=== PATIENT | female | born 1990 | race Caucasian/White ===

== ENCOUNTER 2021-06-17 20:21 | Emergency (ER) | payer SELFPAY ==
[2021-06-17] MEDS ORDERED: Morphine 4 MG/ML Syringe ONE ×2 (20:25→20:53)
[2021-06-17] MEDS ORDERED: Ondansetron 4 MG/2 ML SDV ONE (20:27)
[2021-06-17] MEDS ORDERED: Ondansetron 4 MG/2 ML SDV IVPUSH ONE (20:28)
--- NOTE | 2021-06-17 20:32 | EDM.PDOC ---
ED HPI GENERAL MEDICAL PROBLEM - General Chief Complaint: Trauma Stated Complaint: FELL OFF SEMI TRUCK Time Seen by Provider: 06/17/21 20:27 Source of Information: Reports: Patient History Limitations: Reports: No Limitations - History of Present Illness INITIAL COMMENTS - FREE TEXT/NARRATIVE: Patient is a 30-year-old female calls with trauma location of the fall off the top of a semitruck. Patient arrived patient patient airway was intact she had bilateral breath sounds and good pulses throughout. She complained of pain to her lower back her left hip and left flank side. She believes he may have hit her head when she fell but did not have any LOC she is ANO x3 moving all extremities he has good range of motion. Patient tenderness mostly to the lumbar sacral area of her spine. She has no C-spine tenderness. Patient fast was essentially negative but patient is turned to the side would not lay flat in follow C-spine precautions. Lower Back Pain Score (Numeric/FACES): 10 - Related Data Allergies Allergy/AdvReac Type Severity Reaction Status Date / Time lidocaine Allergy Itching Verified 06/17/21 22:22 Review of Systems - Review of Systems Review Of Systems: See Below Constitutional: Reports: No Symptoms Eyes: Reports: No Symptoms Ears: Reports: No Symptoms Nose: Reports: No Symptoms Mouth/Throat: Reports: No Symptoms Respiratory: Reports: No Symptoms Cardiovascular: Reports: No Symptoms GI/Abdominal: Reports: No Symptoms Genitourinary: Reports: No Symptoms Musculoskeletal: Reports: Back Pain Skin: Reports: No Symptoms Neurological: Reports: No Symptoms Psychiatric: Reports: No Symptoms ED EXAM, GENERAL - Physical Exam Exam: See Below Exam Limited By: No Limitations General Appearance: Alert, WD/WN Eye Exam: Bilateral Eye: EOMI, PERRL Head: Atraumatic, Normocephalic Neck: Normal Inspection, Supple, Non-Tender Respiratory/Chest: No Respiratory Distress, Lungs Clear, Normal Breath Sounds Cardiovascular: Normal Peripheral Pulses, Regular Rate, Rhythm GI/Abdominal: Normal Bowel Sounds, Soft, Tender (Left sided pain mostly flank) Back Exam: Normal Inspection, Vertebral Tenderness (Lumbar sacral tenderness) Extremities: Normal Inspection, Normal Range of Motion Neurological: Alert, Oriented, Normal Cognition. No: Normal Gait (Able to ambulate with a limp) Course - Vital Signs Last Recorded V/S: Last Vital Signs Temp 98.2 F 06/17/21 20:21 Pulse 109 H 10/04/21 20:21 Resp 22 H 06/17/21 20:21 BP 151/83 H 06/17/21 20:21 Pulse Ox 98 06/17/21 20:21 - Orders/Labs/Meds Orders: Active Orders 24 hr Category Date Time Status HYDROmorphone [Dilaudid] Med 06/18/21 00:42 Once 1 mg IVPUSH ONETIME ONE Labs: Laboratory Tests 06/17/21 06/17/21 06/17/21 Range/Units 22:00 22:04 22:50 WBC 5.47 (4.0-11.0) K/uL RBC 3.35 L (4.30-5.90) M/uL Hgb 10.1 L (12.0-16.0) g/dL Hct 30.9 L (36.0-46.0) % MCV 92.2 (80.0-98.0) fL MCH 30.1 (27.0-32.0) pg MCHC 32.7 (31.0-37.0) g/dL RDW Std Deviation 56.8 (28.0-62.0) fl RDW Coeff of Danisha 17 H (11.0-15.0) % Plt Count 288 (150-400) K/uL MPV 9.90 (7.40-12.00) fL Neut % (Auto) 64.2 (48.0-80.0) % Lymph % (Auto) 21.8 (16.0-40.0) % [place] % (Auto) 9.3 (0.0-15.0) % Eos % (Auto) 4.2 (0.0-7.0) % Baso % (Auto) 0.5 (0.0-1.5) % Neut # (Auto) 3.5 (1.4-5.7) K/uL Lymph # (Auto) 1.2 (0.6-2.4) K/uL [place] # (Auto) 0.5 (0.0-0.8) K/uL Eos # (Auto) 0.2 (0.0-0.7) K/uL Baso # (Auto) 0.0 (0.0-0.1) K/uL Nucleated RBC % 0.0 /100WBC Nucleated RBCs # 0 K/uL INR 1.23 APTT 24.8 (18.6-31.3) SEC Sodium 142 (136-145) mmol/L Potassium 4.0 (3.5-5.1) mmol/L Chloride 105 (98-107) mmol/L Carbon Dioxide 25.5 (21.0-32.0) mmol/L BUN 10 (7.0-18.0) mg/dL Creatinine 0.7 (0.6-1.0) mg/dL Est Cr Clr Drug Dosing 109.01 mL/min Estimated GFR (MDRD) > 60.0 ml/min Glucose 91 (74-106) mg/dL Calcium 9.1 (8.5-10.1) mg/dL Total Bilirubin 0.2 (0.2-1.0) mg/dL AST 25 (15-37) IU/L ALT 21 (14-63) IU/L Alkaline Phosphatase 49 (46-116) U/L Total Protein 7.0 (6.4-8.2) g/dL Albumin 4.1 (3.4-5.0) g/dL Globulin 2.9 (2.6-4.0) g/dL Albumin/Globulin Ratio 1.4 (0.9-1.6) Ethyl Alcohol < 3.0 mg/dL Blood Type Antibody Screen 06/17/21 Range/Units 22:50 WBC (4.0-11.0) K/uL RBC (4.30-5.90) M/uL Hgb (12.0-16.0) g/dL Hct (36.0-46.0) % MCV (80.0-98.0) fL MCH (27.0-32.0) pg MCHC (31.0-37.0) g/dL RDW Std Deviation (28.0-62.0) fl RDW Coeff of Danisha (11.0-15.0) % Plt Count (150-400) K/uL MPV (7.40-12.00) fL Neut % (Auto) (48.0-80.0) % Lymph % (Auto) (16.0-40.0) % [place] % (Auto) (0.0-15.0) % Eos % (Auto) (0.0-7.0) % Baso % (Auto) (0.0-1.5) % Neut # (Auto) (1.4-5.7) K/uL Lymph # (Auto) (0.6-2.4) K/uL [place] # (Auto) (0.0-0.8) K/uL Eos # (Auto) (0.0-0.7) K/uL Baso # (Auto) (0.0-0.1) K/uL Nucleated RBC % /100WBC Nucleated RBCs # K/uL INR APTT (18.6-31.3) SEC Sodium (136-145) mmol/L Potassium (3.5-5.1) mmol/L Chloride (98-107) mmol/L Carbon Dioxide (21.0-32.0) mmol/L BUN (7.0-18.0) mg/dL Creatinine (0.6-1.0) mg/dL Est Cr Clr Drug Dosing mL/min Estimated GFR (MDRD) ml/min Glucose (74-106) mg/dL Calcium (8.5-10.1) mg/dL Total Bilirubin (0.2-1.0) mg/dL AST (15-37) IU/L ALT (14-63) IU/L Alkaline Phosphatase (46-116) U/L Total Protein (6.4-8.2) g/dL Albumin (3.4-5.0) g/dL Globulin (2.6-4.0) g/dL Albumin/Globulin Ratio (0.9-1.6) Ethyl Alcohol mg/dL Blood Type A POSITIVE Antibody Screen NEGATIVE Meds: Medications Discontinued Medications Generic Name Dose Route Start Last Admin Trade Name Bishnu PRN Reason Stop Dose Admin Diphenhydramine HCl Confirm 06/17/21 20:36 06/17/21 23:42 Diphenhydramine 50 Mg/Ml Sdv Administered 06/17/21 20:37 Not Given Dose 50 mg .ROUTE .STK-MED ONE Hydromorphone HCl Confirm 06/17/21 22:15 06/17/21 23:42 Hydromorphone 1 Mg/Ml Syringe Administered 06/17/21 22:16 Not Given Dose 1 mg .ROUTE .STK-MED ONE Hydromorphone HCl 1 mg 06/17/21 23:31 06/17/21 23:46 Hydromorphone 1 Mg/Ml Syringe IVPUSH 06/17/21 23:32 1 mg ONETIME ONE Administration Iodixanol 100 ml 06/17/21 22:43 06/17/21 22:44 Iodixanol 652 Mg/Ml 100 Ml Bottle IVPUSH 06/17/21 22:44 100 ml ONETIME STA Administration Methylprednisolone Sodium Succinate Confirm 06/17/21 20:35 06/17/21 23:43 Methylprednisolone Sodium Succinate 125 Mg/2 Ml Sdv Administered 06/17/21 20:36 Not Given Dose 125 mg .ROUTE .STK-MED ONE Morphine Sulfate Confirm 06/17/21 20:25 06/17/21 23:43 Morphine 4 Mg/Ml Syringe Administered 06/17/21 20:26 Not Given Dose 4 mg .ROUTE .STK-MED ONE Morphine Sulfate Confirm 06/17/21 20:53 06/17/21 23:43 Morphine 4 Mg/Ml Syringe Administered 06/17/21 20:54 Not Given Dose 4 mg .ROUTE .STK-MED ONE Ondansetron HCl 4 mg 06/17/21 20:28 06/17/21 22:22 Ondansetron 4 Mg/2 Ml Sdv IVPUSH 06/17/21 20:29 4 mg ONETIME ONE Administration Ondansetron HCl Confirm 06/17/21 20:27 06/17/21 23:42 Ondansetron 4 Mg/2 Ml Sdv Administered 06/17/21 20:28 Not Given Dose 4 mg .ROUTE .STK-MED ONE - Re-Assessments/Exams Free Text/Narrative Re-Assessment/Exam: 06/18/21 00:42 C-collar removed patient is no C-spine tenderness no neurological deficits. 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 I called and spoke to the general surgery on- call Dr. Che about the patient's case he did not see severe segmental findings the patient has no abdominal pain she is tolerating p.o. no nausea or vomiting and he recommends that she just follow-up with her primary care physician. 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 I will put on the images to give the patient as she is driving to [place] and I told her if her belly starts to hurt or has vomiting to please get to the hospital right away. Departure - Departure Time of Disposition: 00:44 Disposition: Home, Self-Care 01 Condition: Good Clinical Impression: Fall from height of greater than 3 feet - Discharge Information *PRESCRIPTION DRUG MONITORING PROGRAM REVIEWED*: Not Applicable *COPY OF PRESCRIPTION DRUG MONITORING REPORT IN PATIENT ROXI: Not Applicable Forms: ED Department Discharge Additional Instructions: The following information is given to patients seen in the emergency department who are being discharged to home. This information is to outline your options for follow-up care. We provide all patients seen in our emergency department with a follow-up referral. The need for follow-up, as well as the timing and circumstances, are variable depending upon the specifics of your emergency department visit. If you don't have a primary care physician on staff, we will provide you with a referral. We always advise you to contact your personal physician following an emergency department visit to inform them of the circumstance of the visit and for follow-up with them and/or the need for any referrals to a consulting specialist. The emergency department will also refer you to a specialist when appropriate. This referral assures that you have the opportunity for follow-up care with a specialist. All of these measure are taken in an effort to provide you with optimal care, which includes your follow-up. Under all circumstances we always encourage you to contact your private physician who remains a resource for coordinating your care. When calling for follow-up care, please make the office aware that this follow-up is from your recent emergency room visit. If for any reason you are refused follow-up, please contact the [facility] Emergency Department at and asked to speak to the emergency department charge nurse. Please follow up with your primary care physician. If you do not have a primary care physician, see below: [facility] [address] [place] [id number] [facility] [address] [place] [address] You were seen today after a fall from your semitruck. We did a CAT scan of your entire body there was no fractures of your spine or the bones. Your CT of your abdomen did show a mass in the kidney which we know from your renal cell carcinoma but also has some findings in your bowels that could be a signs of early obstruction. We spoke to you about staying in the hospital but since she go forward from home you would prefer to leave and try to get home as your truck that you are driving is also leave in the morning. If you have any increased nausea or vomiting or difficulty eating or increased pain in your abdomen please get to the hospital right away if you may have an obstruction in your bowels. We also gave you a copy of the images that we did here if you have any questions or concerns please give us a call otherwise please follow-up with your primary care physician when you return home Sepsis Event Note (ED) - Focused Exam Vital Signs: Vital Signs Temp Pulse Resp BP Pulse Ox 06/17/21 20:21 98.2 F 109 H 22 H 151/83 H 98 - My Orders Last 24 Hours: My Active Orders 06/18/21 00:42 HYDROmorphone [Dilaudid] 1 mg IVPUSH ONETIME ONE - Assessment/Plan Last 24 Hours: My Active Orders 06/18/21 00:42 HYDROmorphone [Dilaudid] 1 mg IVPUSH ONETIME ONE Plan: Patient is a 30-year-old female brought in stroke navigation. Patient was falling on the top of the top of a semitruck. Patient has pain mostly to the lumbar sacral area left flank left hip. We will obtain a ovalles scan labs pain control and reassess
[2021-06-17] MEDS ORDERED: methylPREDNISolone Sodium Succinate 125 MG/2 ML SDV ONE (20:35)
[2021-06-17] MEDS ORDERED: diphenhydrAMINE 50 MG/ML SDV ONE (20:36)
--- NOTE | 2021-06-17 21:53 | PCM.SN.2 ---
- Free Text/Narrative Note: Trauma patient needing IV access. Multiple attempts by ER providers unsuccessful. Pt. has history of chemotherapy and difficult IV access. 1st attempt L wrist with 20 ga unsuccessful. 2nd attempt right wrist successful with 20 ga catheter. Flushes easily. Both attempts I used the reverse esmarch technique. Pt. tolerated well. Time Documentation
[2021-06-17] MEDS ORDERED: HYDROmorphone 1 MG/ML Syringe ONE (22:15)
[2021-06-17] MEDS ORDERED: Iodixanol 652 MG/ML 100 ML Bottle IVPUSH STA (22:43)
[2021-06-17 22:44] LABS: BLOOD UREA NITROGEN,BUN 10 mg/dL (7.0-18.0); CARBON DIOXIDE,CO2 25.5 mmol/L (21.0-32.0); CHLORIDE,CL 105 mmol/L (98-107); GLUCOSE RANDOM 91 mg/dL (74-106); SODIUM,NA 142 mmol/L (136-145)
--- NOTE | 2021-06-17 23:20 | CT ---
Indication: Trauma Technique: Nonenhanced axial CT imaging through the head. Sagittal and coronal reconstructions are provided. Comparison: None Findings: There is no intracranial hemorrhage, edema, or mass effect. There is normal attenuation of the brain parenchyma. The ventricles are normal in size. The basal cisterns are patent. The calvarium is intact. The visualized paranasal sinuses and mastoid air cells are aerated. Impression: No acute intracranial process. Please note that all CT scans at this facility use dose modulation, iterative reconstruction, and/or weight-based dosing when appropriate to reduce radiation dose to as low as reasonably achievable. Dictated by Milton Floyd MD @ 06/17/2021 11:18:24 PM (Electronically Signed)
--- NOTE | 2021-06-17 23:24 | CT ---
Indication: Trauma Technique: Nonenhanced axial CT imaging through the cervical spine. Sagittal and coronal reconstructions are provided. Comparison: None Findings: The cervical vertebral bodies are normal in height. There is no evidence of acute fracture. Spinal alignment is normal the atlantoaxial and atlantooccipital relationships are maintained. There is no prevertebral edema. The intervertebral disc spaces are normal in height. There is no significant narrowing of the spinal canal or neural foramina. Impression: No acute fracture or traumatic malalignment. Please note that all CT scans at this facility use dose modulation, iterative reconstruction, and/or weight-based dosing when appropriate to reduce radiation dose to as low as reasonably achievable. Dictated by Milton Floyd MD @ 06/17/2021 11:23:27 PM (Electronically Signed)
[2021-06-17] MEDS ORDERED: HYDROmorphone 1 MG/ML Syringe IVPUSH ONE (23:31)
--- NOTE | 2021-06-17 23:39 | CT ---
Indication: Trauma Technique: Nonenhanced axial CT imaging through the thoracic spine. Sagittal and coronal reconstructions are provided. Comparison: None Findings: The thoracic vertebral bodies are normal in height. There is normal spinal alignment. There is no evidence of acute fracture. There is no prevertebral edema or paraspinal hematoma. Multilevel degenerative changes are present. There is no appreciable narrowing of the spinal canal and neural foramina. There is a 4 mm polypoid lesion adherent to the posterior wall of the proximal right mainstem bronchus (axial image 93). Additional 3 mm lesion is noted along the anterior wall of the distal right bronchus intermedius (axial image 105). A 3rd lesion measuring 10 x 5 mm is seen along the medial wall of a right posterior basal segmental bronchus (axial images 136-141, sagittal image 10). There is also a 7 mm soft tissue density focus adherent to the posterior wall of the proximal left mainstem bronchus (axial image 86, coronal image 22). Impression: 1. No evidence of acute thoracic vertebral fracture 2. Multiple small bronchial lesions, as detailed above. Further evaluation is recommended with bronchoscopy. Please note that all CT scans at this facility use dose modulation, iterative reconstruction, and/or weight-based dosing when appropriate to reduce radiation dose to as low as reasonably achievable. Dictated by Milton Floyd MD @ 06/17/2021 11:39:11 PM (Electronically Signed)
--- NOTE | 2021-06-17 23:52 | CT ---
Indication: Trauma Technique: Axial, sagittal, and coronal CT images through the lumbar spine reconstructed from concurrent CT abdomen pelvis with contrast. Comparison: None Findings: The lumbar vertebral bodies are normal in height. There is normal spinal alignment. There is no evidence of acute fracture. There is no prevertebral edema or paraspinal hematoma. Mild degenerative changes are noted without significant intervertebral disc height loss. There is no appreciable narrowing of the spinal canal neural foramina. Incidentally noted is a 1.8 x 1.3 cm oval hyperenhancing focus in the lateral interpolar left kidney. Impression: 1. No evidence of acute lumbar vertebral fracture. 2. Incidental 1.8 x 1.3 cm oval hyperenhancing focus in the lateral interpolar left kidney. Given the phase of contrast enhancement, this most likely presents a caliceal diverticulum containing excreted contrast material, although vascular mass and pseudoaneurysm are differential consideration. Follow-up ultrasound is recommended for better characterization. Please note that all CT scans at this facility use dose modulation, iterative reconstruction, and/or weight-based dosing when appropriate to reduce radiation dose to as low as reasonably achievable. Dictated by Milton Floyd MD @ 06/17/2021 11:49:51 PM (Electronically Signed)
--- NOTE | 2021-06-17 23:56 | CT ---
INDICATION: Trauma COMPARISON: None TECHNIQUE: Contrast enhanced axial CT imaging through the chest. 100 mL Visipaque 320 contrast agent was administered intravenously. Sagittal and coronal reconstructions are provided. FINDINGS: There is no evidence of acute displaced rib fracture or chest wall hematoma. There is no hemothorax, pneumothorax, or pulmonary contusion. Multiple polypoid bronchial lesions are noted, largest within a right lower lobe posterior basal segmental branch measuring up to 10 mm. The heart is nonenlarged. There is no pericardial effusion. There is normal caliber of the main pulmonary artery and thoracic aorta. There is no mediastinal hematoma. There is no evidence of acute thoracic vertebral fracture. IMPRESSION: 1. No acute traumatic findings demonstrated in the chest. 2. Multiple polypoid bronchial lesions, described in more detail on separate CT thoracic spine report. Further evaluation is recommended with bronchoscopy. Please note that all CT scans at this facility use dose modulation, iterative reconstruction, and/or weight-based dosing when appropriate to reduce radiation dose to as low as reasonably achievable. Dictated by Milton Floyd MD @ 06/17/2021 11:55:34 PM (Electronically Signed)
--- NOTE | 2021-06-18 00:09 | CT ---
INDICATION: Trauma TECHNIQUE: Contrast enhanced axial CT imaging through the abdomen and pelvis. 100 mL Visipaque 320 contrast agent was administered intravenously. Sagittal and coronal reconstructions are provided. COMPARISON: None FINDINGS: Cholecystectomy clips are noted. Dilatation of the biliary tree is presumably secondary to cholecystectomy. The liver is otherwise unremarkable. No abnormalities are demonstrated relating to the spleen, pancreas, adrenal glands, and right kidney. A 1.8 x 1.3 cm hyper enhancing oval lesion is noted in the lateral interpolar left kidney. The portal vein is patent. The abdominal aorta is normal in caliber. There is no abdominal lymphadenopathy. The stomach is unremarkable. There is moderate distention of the proximal duodenum with a duodenal compression at the aortomesenteric window, suggesting superior mesenteric artery syndrome. A single mild distended segment of small bowel measuring up to 3 cm in diameter is noted in the right lower quadrant. Remainder of the small bowel is unremarkable. The appendix is surgically absent. There is no colonic wall thickening or mesenteric edema. There is no intraperitoneal free fluid or free air. There is no evidence of intraperitoneal or retroperitoneal hemorrhage. There is no pelvic hematoma. The urinary bladder is intact. The uterus is unremarkable. There is no evidence of acute pelvic or lumbar spine fracture. IMPRESSION: 1. No acute traumatic findings demonstrated in the abdomen and pelvis. 2. Incidental 1.8 x 1.3 cm oval hyperenhancing focus in the lateral interpolar left kidney. Given the phase of contrast enhancement, this most likely presents a caliceal diverticulum containing excreted contrast material, although vascular mass and pseudoaneurysm are differential consideration. Follow-up ultrasound is recommended for better characterization. 3. Proximal duodenal distension with compression at the aortomesenteric window, suggesting superior mesenteric artery syndrome. Correlate clinically. 4. A single mildly distended segment of small bowel in the right lower quadrant. Low grade obstruction is not excluded. Correlate clinically. Please note that all CT scans at this facility use dose modulation, iterative reconstruction, and/or weight-based dosing when appropriate to reduce radiation dose to as low as reasonably achievable. Dictated by Milton Floyd MD @ 06/18/2021 12:08:17 AM (Electronically Signed)
[2021-06-18] MEDS ORDERED: HYDROmorphone 1 MG/ML Syringe IVPUSH ONE (00:42)
== END 2021-06-18 01:05 | disposition home or self-care (01) ==
LOC: MW.ED 20:21
DX: M54.50 Low back pain, unspecified (principal); R10.9 Unspecified abdominal pain; Z88.4 Allergy status to anesthetic agent; W17.89XA Other fall from one level to another, initial encounter
CPT/HCPCS: 36415; 70450; 71260; 72125; 74177; 80053; 80307; 85025; 85610; 85730; 86850; 86900; 86901; 96374; 96375; 96376; 99284; J1170; J2405; 72128-26; 72131-26